=== PATIENT | female | born 1950 | race Caucasian/White ===

== ENCOUNTER 2018-10-31 17:53 | Inpatient (IN) | payer MEDICARE ==
[~2018-10-31] VITALS: Ht 165.1 cm; Wt 98.5 kg
[~2018-10-31 17:53] MED LIST: ASPIR 8181 MG PO; GLIPIZIDE10 MG PO; LISINOPRIL-HCT1 EAC1 PO; METFORMIN HCL1000 MG PO; SYMBICORT 16010.2 GM PO
--- OUTSIDE RECORDS SUMMARY | 2018-10-31 17:55 | XMS REPORT | Summary of Care ---
Author Author [facility] Organization [facility] Address Unknown Phone Unavailable Encounter TIMOTHY Wright(DREW) [id number] Date(s): 01/13/18 - 01/13/18 [facility] [address] [place] [address]- [phone] Discharge Disposition: Home or Self Care Attending Physician: Heladio Palmer MD Referring Physician: Heladio Palmer MD Vital Signs 1 2 3 Most recent to oldest [Reference Range]: 165.1 cm (01/12/18 2:13 PM) Height 153/73 mmHg *HI* (01/13/18 11:15 AM) 146/70 mmHg *HI* (01/13/18 11:00 AM) 127/73 mmHg (01/13/18 10:45 AM) Blood Pressure [90-140/60-90 mmHg] 18 BRMIN (01/13/18 11:15 AM) 18 BRMIN (01/13/18 11:00 AM) 18 BRMIN (01/13/18 10:45 AM) Respiratory Rate [14-20 BRMIN] 100 kg (01/12/18 2:13 PM) Weight 36.69 m2 (01/12/18 2:13 PM) Body Mass Index Problem List Condition Effective Dates Status Health Status Informant Anxiety(Confirmed) Active CKD (chronic kidney Active disease) stage 3, GFR 30-59 ml/min(Confirmed) COPD (chronic Resolved obstructive pulmonary disease)(Confirmed) IBS (irritable bowel Active syndrome)(Confirmed) DM (diabetes Active mellitus)(Confirmed) HTN Active (hypertension)(Confi rmed) Cervical Resolved cancer(Confirmed) Depression(Confirmed Active ) Ovarian Resolved cyst(Confirmed) Vitamin D Resolved deficiency(Confirmed ) Allergies, Adverse Reactions, Alerts Substance Reaction Severity Status Food Chocolate Active Food Nuts Active NKDA Active Medications Sodium Chloride 0.9% IV 1,000 mL 1,000 mL, Rate: 25 ml/hr, Infuse over: 40 hr, Route: IV, Dosing Weight 100 kg, T otal Volume: 1,000, Start date: 01/13/18 8:37:00 CDT, Duration: 1 day, Stop date : 01/14/18 8:36:00 CDT, 2.17, m2 Start Date: 01/13/18 Stop Date: 01/13/18 Status: Discontinued Results No data available for this section Immunizations Given and Recorded Vaccine Date Status Refusal Reason pneumococcal 23-valent vaccine1 05/06/06 Given 1Result Comment: lot [id number] exp [id number] Procedures Procedure Date Related Diagnosis Body Site Status Cataract surgery Completed Cholecystectomy Completed Hysterectomy Completed Procedure on back Completed Social History Social History Type Response Smoking Status Current every day smoker; Exposure to Tobacco Smoke None; Cigarette Smoking Last 365 Days Yes; Reg Smoking Cessation Counseling Yes entered on: 01/13/18 Assessment and Plan No data available for this section
--- OUTSIDE RECORDS SUMMARY | 2018-10-31 17:55 | XMS REPORT | Summary of Care ---
Author Author [facility] Outpatient Imaging [facility] Outpatient Imaging [facility] Address Unknown Phone Unavailable Encounter TIMOTHY Wright(FIN) [id number] Date(s): 08/03/17 - 08/03/17 [facility] Outpatient Imaging [facility] [address] [facility], [address] [place] [phone] Discharge Disposition: Home or Self Care Attending Physician: Steffen May DO Vital Signs No data available for this section Problem List Condition Effective Dates Status Health [...] Active Food Nuts Active NKDA Active Medications No data available for this section Results No data available for this section Immunizations Given and Recorded Vaccine Date Status Refusal Reason pneumococcal 23-valent vaccine1 05/06/06 Given 1Result Comment: lot [id number] exp [id number] Procedures Procedure Date Related Diagnosis Body Site Cataract surgery Cholecystectomy Hysterectomy Procedure on back Social History Social History Type Response Smoking Status Current every day smoker; Exposure to Tobacco Smoke None; Cigarette Smoking Last 365 Days Yes; Reg Smoking Cessation Counseling Yes Assessment and Plan No data available for this section
--- OUTSIDE RECORDS SUMMARY | 2018-10-31 17:55 | XMS REPORT | Summary of Care ---
Author Author [facility] [place] Organization [facility] [place] Address Unknown Phone Unavailable Encounter TIMOTHY Wright(FIN) [id number] Date(s): 12/21/17 - 12/21/17 [facility] - [place] [address] [place] [address] [phone] Discharge Disposition: Home or Self Care Attending Physician: Heladio Palmer MD Vital Signs No data available for this [...] 05/06/06 Given 1Result Comment: lot [id number] exp [id number] Procedures Procedure Date Related Diagnosis Body Site Status Cataract surgery Completed Cholecystectomy Completed Hysterectomy Completed Procedure on back Completed Social History Social History Type Response Smoking Status Current every day smoker; Exposure to Tobacco Smoke None; Cigarette Smoking Last 365 Days Yes; Reg Smoking Cessation Counseling Yes entered on: 12/06/16 Assessment and Plan No data available for this section
--- OUTSIDE RECORDS SUMMARY | 2018-10-31 17:55 | XMS REPORT | Continuity of Care Document ---
Author Author [facility] Address Unknown Phone Unavailable Problems Problem Status Onset Date Classification Date Reported Comments Source EGD / COLON Active 12/21/2017 [facility] UNK Active 11/19/2016 [facility] Z12.11 Active 11/19/2016 [facility] R05 - COUGH Active 09/01/2016 [facility] I65.23 - OCCLUSION AND STENOSIS OF BILA Active 04/13/2016 [facility] 787.20/787.91/787.04 Active 08/22/2011 [facility] Anxiety Active Problem [facility] stage 3, GFR 30-59 ml/min(<span ID="[id number]">Confirmed</span>) Active Problem [facility]/16/2018 [facility] COPD (<span ID="[id number]">Confirmed</span>) Resolved Problem [facility]/16/2018 [facility] IBS (<span ID="[id number]">Confirmed</span>) Active Problem [facility]/16/2018 [facility] DM (<span ID="[id number]">Confirmed</span>) Active Problem 01/16/2018 [facility] HTN (<span ID="[id number]">Confirmed</span>) Active Problem [facility]/16/2018 [facility] Cervical cancer Res[facility] Problem 01/16/2018 [facility] Depression Active Problem [facility]/16/2018 [facility] Ovarian cyst Resolved Problem 01/16/2018 [facility] Vitamin D deficiency Resolved Problem 01/16/2018 [facility] Dysphagia, unspecified 12/30/2017 [facility] Medications Medication Details Route Status Patient Instructions Ordering Provider Order Date Source Sodium Chloride 0.9% IV 1,000 mL 1,000 mL, Rate: 25 ml/hr, Infuse over: 40 hr, Route: IV, Dosing Weight 100 kg, Total Volume: 1,000, Start date: 01/13/18 8:37:00 CDT, Duration: 1 day, Stop date: 01/14/18 8:36:00 CDT, 2.17, m2 Inactive 01/13/2018 [facility] Nexium 40 mg oral delayed release capsule 40 mg, 1 cap, PO, Daily, 30 cap, Substitution Allowed PO Active 12/14/2011 [facility] Ventolin HFA 90 mcg/inh inhalation aerosol with adapter 2 puff, INHALATION, PRN, 17 gm, Substitution Allowed, Maintenance, AERO INHALATION Active 12/14/2011 [facility] Saphris 5 mg sublingual tablet 5 mg, 1 tab, SL, Daily, 60 tab, Substitution Allowed, TAB SL Active 12/14/2011 [facility] Micardis 40 mg oral tablet 40 mg, 1 tab, PO, Daily, 30 tab, Substitution Allowed, TAB PO Active 12/14/2011 [facility] Spiriva Daily, Substitution Allowed Active 12/13/2011 [facility] Advair Diskus 250 mcg-50 mcg inhalation powder 1 puff, INHALATION, BID, 28 ea, Substitution Allowed, Maintenance, PWDR INHALATION Active 12/13/2011 [facility] citalopram 20 mg oral tablet 20 mg, 1 tab, PO, Daily, 30 tab, Substitution Allowed, TAB PO Active 12/13/2011 [facility] glyBURIDE-metformin 1.25 mg-250 mg oral tablet 1 tab, PO, BID, Substitution Allowed, Maintenance, TAB PO Active 12/13/2011 [facility] aspirin 81 mg tablet, chewable 81 mg, 1 tab, PO, Daily, tab, Substitution Allowed, CHEWTAB PO Active 12/07/2011 [facility] pneumococcal 23-valent vaccine 0.5 ml, Drug Form: INJ, Route: IM, Start date: 05/06/06 9:00:00, Stop date: 05/06/06 9:00:00 IM No Longer Active [place] 05/06/2006 [facility] Allergies, Adverse Reactions, Alerts Substance Category Reaction Severity Reaction type Status Date Reported Comments Source Food Chocolate Assertion Propensity to adverse reactions to substance Active [facility] Food Nuts Assertion Propensity to adverse reactions to substance Active [facility] Immunizations Immunization Date Given Site Status Last Updated Comments Source pneumococcal 23-valent vaccine<sup>1</sup> 05/06/2006 Right deltoid completed Chance Result Comment: lot [id number] exp [id number] [facility] pneumococcal 23-valent vaccine<sup>1</sup> 05/06/2006 completed Chance 1Result Comment: lot [id number] [facility] Results Order Name Results Value Reference Range Date Interpretation Comments Source Barium swallow DX Barium swallow DX Exam: Barium swallow esophagram Reason for Exam: - R13.10 Dysphagia, unspecified Comparison Exam: CT scan of the chest 09/17/2016 Discussion: On fur farmer view of the cervical spine, the prevertebral soft tissues are unremarkable. Patient is status post anterior cervical fusion within the lower cervical spine. Patient ingested air crystals and barium without incident. Upon deglutition, there was no evidence seen for aspiration or penetration. The valleculae and piriform sinuses are unremarkable. The esophagus is unremarkable in appearance, without evidence for mucosal abnormalities, abnormal filling defects, or external mass effect. No evidence seen for tertiary contraction waves or hiatal hernia. During the examination, there was no evidence seen for gastroesophageal reflux. The visualized portions of the stomach are unremarkable. Fluoro time 1 minute, 40 seconds. Total exam TFP=5039 mGy-cm. Impression: 1. Unremarkable barium swallow esophagram 12/21/2017 - - Read by: Sandro Clark MD Dictated Date/time: 12/21/17 11:08 Electronically Signed by: Sandro Clark MD 12/21/17 11:12 FINAL REPORT [facility] Spine Lumbar Comp w Bend views DX Spine Lumbar Comp w Bend views DX EXAM: XR LUMBAR SPINE 5 VIEWS DATE: 08/03/2017 10:31 AM DIRECTOR OF REHABILITATION INDICATION: - M54.30 Sciatica, unspecified side COMPARISON: None TECHNIQUE: AP, lateral, coned lateral, lesion extension, LPO and RPO radiographs of the lumbar spine DISCUSSION: 5 nonrib bearing, lumbar-type vertebral bodies are present. Mild dextrocurvature of the thoracic lumbar spine. Moderate disc height loss seen at L4-5. Small multilevel osteophytes are present. Vertebral body heights and remaining disk heights are preserved. There is no spondylolysis or spondylolisthesis. No significant motion seen on flexion or extension. Moderate bilateral facet hypertrophy at L4-5 and L5-S1. Mild bilateral SI joint degenerative changes. Extensive atherosclerotic aortoiliac calcifications are noted. A right lower quadrant calcification measuring approximately 9 x 5 mm may represent a calcified lymph node. IMPRESSION: 1. Multilevel degenerative changes with moderate disc height loss at L4-5. Moderate facet arthropathy in the lower lumbar spine. 2. No spondylolysis or spondylolisthesis. No abnormal motion in flexion or extension. 08/03/2017 - - Read by: Justin Gómez MD Dictated Date/time: 08/03/17 15:05 Electronically Signed by: Justin Gómez MD 08/03/17 15:09 FINAL REPORT [facility] Shoulder series DX Shoulder series DX Exam: Right shoulder x-ray, 3 views Reason for Exam: S46.001A Unspecified injury of muscle(s) and tendon(s) of the rotator cuff of right shoulder, initial encounter Comparison Exam: None Discussion: No acute bony abnormality seen of the right shoulder. Mild osteoarthritis seen within the AC joint and glenohumeral joint. No suspicious osteoblastic or osteolytic lesions seen to suggest pathologic involvement. The visualized portions of the right rib cage and right lung are unremarkable. Impression: 1. Mild osteoarthritis seen within the AC joint and glenohumeral joint. 11/12/2016 - - Read by: Sandro Clark MD Dictated Date/time: 11/12/16 14:25 Electronically Signed by: Sandro Clark MD 11/12/16 14:26 FINAL REPORT [facility] Chest wo contrast CT Chest wo contrast CT EXAM: CT CHEST WITHOUT CONTRAST DATE: 09/17/2016 12:57 PM DIRECTOR OF REHABILITATION INDICATION: fatigue, cough TECHNIQUE: Volumetric CT acquisition of the chest without contrast. Axial, sagittal and coronal reconstructions. Axial MIP reconstructions are created at the acquisition workstation. IV contrast: None. DLP: 595 mGy-cm COMPARISON: No available prior chest CTs for comparison. FINDINGS: Lines and Tubes: None. Lower Neck: The visible portions or the lower neck and thyroid are unremarkable. Heart and Great Vessels: The heart is normal in size. Marked annular calcification of the mitral valve and mild calcification aortic valve. There is calcified atherosclerosis of the coronary arteries and aorta. The left atrium is mildly dilated at 4.5 cm. Lymph Nodes: No hilar, mediastinal, axillary or internal mammary lymphadenopathy. Lungs: Exam is limited due to expiration. 0.9 cm soft tissue density nodule in the superior left lower lobe (image 62). 0.5 cm subcentimeter nodule in the right lower lobe (image 114). Numerous additional 2 to 4 mm nodules are seen throughout all lobes. Additional 1.2 cm pleural-based nodule in the right lower lobe (image 133). Pleura: No evidence of pleural effusion or pneumothorax. Upper abdomen: Unremarkable. Bones and Soft Tissues: Cervical spinal fusion hardware seen. Nlpt-ho-pahelyll changes of the spine are noted. IMPRESSION: 1. Innumerable centrilobular nodules in all lobes of the lung, some of them show tree-in-bud distribution, the largest measures 0.9 cm in the superior left lower lobe. These findings are most compatible with infection, however if there is a history of malignancy cannot exclude metastasis. Recommend follow-up in 3 months after adequate treatment per Fleischner criteria. 2. Mitral annular calcifications and mild left atrial dilation. 09/17/2016 - - This report was dictated by a Scientific Process Operator/Fellow. I have personally reviewed the images as well as the Resident's interpretation and agree with the findings. Read by: Ad Lopez MD Resident: Ad Lopez MD Dictated Date/time: 09/17/16 13:42 Electronically Signed by: Chucky Bhardwaj MD 09/17/16 16:57 FINAL REPORT [facility] Chest 2 views DX Chest 2 views DX EXAM: XR CHEST 2 VIEW DATE: 09/01/2016 3:28 PM DIRECTOR OF REHABILITATION INDICATION: R05 Cough COMPARISON: 11/13/2009 TECHNIQUE: PA lateral chest FINDINGS: Lung le are clear. Heart and mediastinal structures are unremarkable. Orthopedic hardware in the upper thoracic spine is noted. IMPRESSION: No acute disease. 09/01/2016 - - Read by: Guera Winn MD Dictated Date/time: 09/02/16 09:27 Electronically Signed by: Guera Winn 09/02/16 09:30 FINAL REPORT [facility] Neck CTA Neck CTA EXAM: CTA NECK WITH CONTRAST DATE: 04/20/2016 8:58 AM CDT INDICATION: Carotid atherosclerosis seen bilaterally via ultrasound TECHNIQUE Rapid acquisition spiral images were obtained following the intravenous administration of 75 mL Visipaque. 3D MIP reconstructions were performed. DLP: 246 mGy-cm COMPARISON: unavailable DISCUSSION: Aortic arch: Standard anatomy. Calcified atherosclerosis. There is approximately 30-40 % stenosis at the origin of the right subclavian artery related to calcified disease. Left carotid system: Tortuous, but otherwise unremarkable common carotid artery. Disc ossify disease at the bulb and bifurcation with estimated stenosis of less than 20%. The distal cervical internal carotid arteries unremarkable. The ECA origin is patent. Right carotid system: Scattered intimal thickening, soft plaque and calcified disease in the common carotid artery without substantial luminal narrowing. There is mixed calcified disease and soft plaque at the carotid bifurcation asymmetric to the ECA origin. There is a less than 5 mm and narrowing of the internal carotid artery origin, but approximately 80% short segment focal narrowing of the ECA origin. Vertebral arteries: Slightly left dominant system. Normal course, caliber, and contour without atherosclerosis or stenosis Soft tissues: No mucosal contour abnormality, abnormal enhancement, or asymmetry. Normal salivary and thyroid glands. No lymphadenopathy. There are cervical spine postoperative changes without hardware failure. There is bilateral temporomandibular joint arthrosis. IMPRESSION: 1. Bilateral carotid bifurcation atherosclerosis without evidence of hemodynamically significant common carotid or internal carotid artery stenosis 2. There is approximately 80% short segment stenosis of the origin of the right external carotid artery 3. There is approximately 30-40% stenosis of the origin of the right subclavian artery All quantitative and qualitative assessments of carotid bifurcation and proximal internal carotid artery stenosis are made at referencing the distal internal carotid artery. 04/20/2016 - - Read by: Reid Herrera MD Dictated Date/time: 04/20/16 13:47 Electronically Signed by: Reid Herrera MD 04/20/16 14:54 FINAL [facility]PORT [facility] Vital Signs Vital Sign Value Date Comments Source Systolic (mm Hg) 153 01/13/2018 [facility] Diastolic (mm Hg) 73 01/13/2018 [facility] Respitory Rate 18 01/13/2018 [facility] Respitory Rate 18 01/13/2018 [facility] Systolic (mm Hg) 146 01/13/2018 [facility] Diastolic (mm Hg) 70 01/13/2018 [facility] Respitory Rate 18 01/13/2018 [facility] Systolic (mm Hg) 127 01/13/2018 [facility] Diastolic (mm Hg) 73 01/13/2018 [facility] Height 165.1 cm 01/12/2018 [facility] Weight 100 01/12/2018 [facility] BMI Calculated 36.69 01/12/2018 [facility] Diastolic (mm Hg) 74 12/14/2011 [facility] Respitory Rate 18 12/14/2011 [facility] Systolic (mm Hg) 141 12/14/2011 [facility] Height 165.10 cm 12/14/2011 [facility] Weight 88.636 12/14/2011 [facility] Encounters Location Location Details Encounter Type Encounter Number Reason For Visit Attending Provider ADM Date DC Date Status Source [facility] [id number] MARY COLUNGAJACQUIE 12/14/2011 12/14/2011 [facility] [place] [facility] [id number] Emre Jane 04/20/2016 04/21/2016 [facility] [place] [facility] [id number] [facility] 09/01/2016 09/02/2016 [facility] [place] [facility] [id number] [facility] 09/17/2016 09/18/2016 [facility] [place] [facility] [id number] [facility] 11/12/2016 11/13/2016 [facility] [place] [facility] [id number] [facility] 08/03/2017 08/04/2017 [facility] [place] [facility] [place] [facility] [id number] Heladio Palmer 12/21/2017 12/22/2017 [facility] [id number] Heladio Palmer 01/13/2018 01/13/2018 [facility] Procedure Code Date Perfomer Comments Source Cataract surgery [id number] [facility] Cholecystectomy [id number] [facility] Hysterectomy [id number] [facility] Procedure on back [id number] [facility] Cataract surgery [id number] [facility] Cholecystectomy [id number] [facility] Hysterectomy [id number] [facility] Procedure on back [id number] [facility] Cataract surgery [id number] [facility] Cholecystectomy [id number] [facility] Hysterectomy [id number] [facility] Procedure on back [id number] NEGR[facility] Contrersa
--- OUTSIDE RECORDS SUMMARY | 2018-10-31 17:56 | XMS REPORT | Summary of Care ---
Author Author [facility] Outpatient Imaging [facility] Outpatient Imaging [facility] Address Unknown Phone Unavailable Encounter [facility] Savita_rogelio(FIN) [id number] Date(s): 09/01/16 - 09/01/16 [facility] Outpatient Imaging [facility] [address] [facility], [address] [place] [phone] Discharge Disposition: Home or Self Care Attending Physician: Steffen May DO Vital Signs No data available for this section Problem List No data available for this section Allergies, Adverse Reactions, Alerts Substance Reaction Severity Status Food Chocolate Active Food Nuts Active NKDA Active Medications No data available for this section Results No data available for this section Immunizations Given and Recorded Vaccine Date Status Refusal Reason pneumococcal 23-valent vaccine1 05/06/06 Given 1Result Comment: lot [id number] exp [id number] Procedures No data available for this section Social History No data available for this section Assessment and Plan No data available for this section
--- OUTSIDE RECORDS SUMMARY | 2018-10-31 17:56 | XMS REPORT | Summary of Care ---
Author Author [facility] [place] Organization [facility] [place] Address Unknown Phone Unavailable Encounter [facility] Encntr_alias(FIN) [id number] Date(s): 11/12/16 - 11/12/16 [facility] [place] [address] [place] [address] [phone] Discharge Disposition: Home or Self Care Attending [...] 05/06/06 Given 1Result Comment: lot [id number] exp [id number] Procedures No data available for this section Social History No data available for this section Assessment and Plan No data available for this section
--- OUTSIDE RECORDS SUMMARY | 2018-10-31 17:56 | XMS REPORT | Summary of Care ---
Author Author [facility] [place] Organization [facility] [place] Address Unknown Phone Unavailable Encounter [facility] Ana Luisar_rogelio(FIN) [id number] Date(s): 04/20/16 - 04/20/16 [facility] [place] [address] [place] [address] [phone] Discharge Disposition: Home or Self Care Attending Physician: Emre Jane MD Vital Signs No data available for [...] 05/06/06 Given 1Result Comment: lot [id number] exp [id number] Procedures No data available for this section Social History No data available for this section Assessment and Plan No data available for this section
--- OUTSIDE RECORDS SUMMARY | 2018-10-31 17:56 | XMS REPORT | Summary of Care ---
Author Author ROLANDO Arias, JERRY Organization Unknown Address [facility] Phone Unavailable Care Team Providers Care Finisher Fine Diamond Dies Name Role Phone ROLANDO Arias, JERRY Unavailable Unavailable CAROL Arias, HELADIO Unavailable Unavailable CHET Stoll, FRANCES Unavailable Unavailable YEYO SINGH HI, PRECIOUS Booker Unavailable Unavailable YEYO Arias, PRECIOUS Unavailable Unavailable Rolando SINGH, Jerry Unavailable Unavailable Carol SINGH, Heladio Unavailable Unavailable Unavailable Unavailable Functional Status Name Dates Details Functional status health issues are not documented Status: Name Dates Details Cognitive status health issues are not documented Status: Problems Name Dates Details Diabetic neuropathy (250.60, E11.40) Status: Active Lesion of skin of foot (709.9, L98.9) Status: Active Angina pectoris (413.9, I20.9) Status: Active Carotid atherosclerosis, bilateral (433.10, I65.23) Status: Active Vitamin D deficiency disease (268.9, E55.9) Status: Active Flu vaccine need (V04.81, Z23) Status: Active Need for vaccination with 13-polyvalent pneumococcal conjugate vaccine (V03.82, Z23) Status: Active Jaw pain (784.92, R68.84) Status: Active Encounter for screening for lung cancer (V76.0, Z12.2) Status: Active Cough, persistent (786.2, R05) Status: Active Dyspnea on exertion (786.09, R06.09) Status: Active Abnormal chest CT (793.2, R93.89) Status: Active Injury of right rotator cuff (959.2, S46.001A) Status: Active Screening for osteoporosis (V82.81, Z13.820) Status: Active Screening for breast cancer (V76.10, Z12.31) Status: Active Piriformis syndrome of right side (355.0, G57.01) Status: Active 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, 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) Status: Active Irritable bowel syndrome with both constipation and diarrhea (564.1, K58.2) Status: Active Vitamin D insufficiency (268.9, E55.9) Status: Active Fatigue (780.79, R53.83) Status: Active Abnormal urine (791.9, R82.90) Status: Active Dizziness (780.4, R42) Status: Active Obstructive sleep apnea on CPAP (327.23, G47.33) Status: Active Flu vaccine need (V04.81, Z23) Status: Active Black tarry stools (578.1, K92.1) Status: Active Hypoactive thyroid (244.9, E03.9) Status: Active Acute sciatica (724.3, M54.30) Status: Active Diabetes mellitus (250.00, E11.9) Status: Active Urinary frequency (788.41, R35.0) Status: Active Choking sensation (784.99, R09.89) Status: Active Frontal headache (784.0, R51) Status: Active Blurred vision (368.8, H53.8) Status: Active Skin lesion of face (709.9, L98.9) Status: Active Screening mammogram, encounter for (V76.12, Z12.31) Status: Active Dysphagia (787.20, R13.10) Status: Active Encounter for screening colonoscopy (V76.51, Z12.11) Status: Active Acid reflux (530.81, K21.9) Status: Active Dysphagia (787.20, R13.10) Status: Active Colon polyp (211.3, K63.5) Status: Active GERD without esophagitis (530.81, K21.9) Status: Active Seasonal allergic rhinitis (477.9, J30.2) Status: Active Insomnia (780.52, G47.00) Status: Active Nausea (787.02, R11.0) Status: Active Tobacco dependence (305.1, F17.200) Status: Active Cervicalgia (723.1, M54.2) Status: Active Cervico-occipital neuralgia of right side (723.8, M54.81) Status: Active Hypertension (401.9, I10) Status: Active Depression with anxiety (300.4, F41.8) Status: Active Posterior auricular lymphadenopathy (785.6, R59.0) Status: Active Tinea cruris (110.3, B35.6) Status: Active Acute sinusitis (461.9, J01.90) Status: Active Chronic kidney disease, stage 3 (585.3, N18.3) Status: Active Yeast infection of the vagina (112.1, B37.3) Status: Active Uncontrolled type 2 diabetes mellitus with stage 3 chronic kidney disease, with long-term current use of insulin (250.52, E11.22) Status: Active Mixed hyperlipidemia (272.2, E78.2) Status: Active Controlled type 2 diabetes mellitus with chronic kidney disease, with long-term current use of insulin, unspecified CKD stage (250.40, E11.22) Status: Active Medications Name Dates Details CPAP Continuous Positive Airway Pressure Active Super B Complex TABS TAKE 1 TABLET DAILY DIRECTED. * Refills: 0 Active Aspirin 81 MG Oral Tablet Delayed Release TAKE 1 TABLET DAILY. * Refills: 0 Active Losartan Potassium-HCTZ 100-25 MG Oral Tablet TAKE ONE TABLET BY MOUTH DAILY * Quantity: 90 Refills: 1 YEH D.O.FRANCES * Start : 27-Sep-2017 Active Womens One Daily Oral Tablet TAKE 1 TABLET DAILY. * Refills: 0 Active Acetaminophen 500 MG Oral Tablet TAKE 1 TABLET EVERY 4 TO 6 HOURS NEEDED. * Refills: 0 Active diphenhydrAMINE HCl - 25 MG Oral Capsule TAKE 1 CAPSULE DAILY as needed * Refills: 0 Active Nasal [place] SOLN INSTILL SQUIRT PRN * Refills: 0 Active clonazePAM 0.5 MG Oral Tablet TAKE ONE TABLET BY MOUTH AT BEDTIME NEEDED * Quantity: 30 Refills: 2 YEH D.O.FRANCES * Start : 07-Sep-2016 Active Citalopram Hydrobromide 20 MG Oral Tablet TAKE ONE TABLET BY MOUTH DAILY * Quantity: 90 Refills: 1 YEH D.O.FRACNES * Start : 03-Feb-2016 Active Vitamin D3 2000 UNIT Oral Capsule take 1 cap daily alternating with 2 caps * Quantity: 100 Refills: 6 ROLANDO JERRY Arias Active Fluticasone Propionate 50 MCG/ACT Nasal Suspension USE 2 SPRAYS IN EACH NOSTRIL ONCE DAILY * Quantity: 1 Refills: 5 YEH D.O., FRANCES * Start : 02-Aug-2016 Active 16 GM Bottle NovoTwist 32G X 5 MM USE TO INJECT INSULIN FOUR TIMES A DAY * Quantity: 2 Refills: 2 ROLANDO Arias, JERRY * Start : 24-Sep-2016 Active 100 Unit Box Fiber CHEW TAKE 2 TABLET DAILY * Refills: 0 Active Diclofenac Sodium 1 % Transdermal Gel APPLY 2 GRAMS TO UPPER EXTREMITITES FOUR TIMES A DAY. DO NOT APPLY MORE THAN 8 G EDILIA DAILY. * Quantity: 1 Refills: 1 YEH D.O., FRANCES * Start : 10-Nov-2016 Active 100 GM Tube NovoLOG FlexPen 100 UNIT/ML Subcutaneous Solution Pen-injector inject 15 U SC qAC plus CF 1:50>150 mg/dL MDD:60 U * Quantity: 2 Refills: 2 ROLANDO Arias, JERRY * Start : 12-Jul-2017 Active 5 x 3 ML Pen Tresiba FlexTouch 100 UNIT/ML Subcutaneous Solution Pen-injector inject 45 U SC daily MDD:60 U * Quantity: 2 Refills: 2 ROLANDO Arias, JERRY * Start : 10-Aug-2017 Active 5 x 3 ML Pen OneTouch Delica Lancets 33G check BG 4xs daily * Quantity: 2 Refills: 2 JERRY MARSHALL M.D. * Start : 23-Aug-2017 Active 100 Unit Box OneTouch Verio In Vitro Strip CHECK BLOOD SUGAR FOUR TIMES DAILY. * Quantity: 2 Refills: 2 JERRY MARSHALL M.D. * Start : 10-Aug-2017 Active 100 Strip Box Oxybutynin Chloride ER 5 MG Oral Tablet Extended Release 24 Hour Take one tablet by mouth daily for overactive bladder * Quantity: 90 Refills: 1 YEH D.O., FRANCES * Start : 13-Dec-2017 Active OsmoPrep 1.102-0.398 GM Oral Tablet TAKE DIRECTED. * Quantity: 40 Refills: 0 HELADIO MEDINA M.D. * Start : 20-Dec-2017 Active Benadryl CAPS TAKE 2 CAPSULE BEDTIME * Refills: 0 Active Trulicity 0.75 MG/0.5ML Subcutaneous Solution Pen-injector inject 0.75 mg SC once weekly * Quantity: 1 Refills: 2 ROLANDO M.D., JERRY * Start : 20-Apr-2018 Active 4 x 0.5 ML Pen Azelastine HCl - 0.1 % Nasal Solution USE 1 TO 2 SPRAYS IN EACH NOSTRIL TWICE DAILY NEEDED. * Quantity: 1 Refills: 5 YEH D.O., FRANCES * Start : 15-May-2018 Active 30 ML Bottle Chantix Starting Month Eliot 0.5 MG X 11 & 1 MG X 42 Oral Tablet TAKE DIRECTED PER PACKAGE INSTRUCTIONS. * Quantity: 53 Refills: 0 YEH D.O., ESTEFANI-DANIEL * Start : 15-May-2018 Active Ondansetron HCl - 4 MG Oral Tablet TAKE 1 TABLET EVERY 6 HOURS PRN nausea * Quantity: 60 Refills: 1 YEH D.O., FRANCES * Start : 15-May-2018 Active Atorvastatin Calcium 40 MG Oral Tablet TAKE 1 TABLET DAILY. * Quantity: 1 Refills: 1 YEH D.O., FRANCES * Start : 23-May-2018 Active 90 Tablet Bottle Ventolin HFA 108 (90 Base) MCG/ACT Inhalation Aerosol Solution INHALE 1 TO 2 PUFFS BY MOUTH EVERY 4 TO 6 HOURS NEEDED * Quantity: 1 Refills: 5 YEH D.O., FRANCES * Start : 26-Jul-2018 Active 8 GM Inhaler Allergies and Adverse Reactions Name Dates Details No Known Drug Allergies (Allergy) Status: Active Past Medical History Name Dates Details History of Anxiety (300.00, F41.9) Status: Resolved History of chronic obstructive lung disease (V12.69, Z87.09) Status: Resolved History of malignant neoplasm of cervix (V10.41, Z85.41) Status: Resolved History of ovarian cyst (V13.29, Z87.42) Status: Resolved History of Vitamin D deficiency (268.9, E55.9) Status: Resolved Procedures Procedure Dates Details [[facility]] HEMOGLOBIN A1c Date: 26-Oct-2018 History of Hysterectomy Completed History of Upper Back Surgery Completed History of Cataract Surgery Completed History of Cholecystectomy Completed Immunization Name Dates Details Pneumococcal polysaccharide vaccine, 23 valent on: Aug-2012 Influenza on: 22-May-2014 Fluzone Quadrivalent 0.5 ML Intramuscular Suspension Prefilled Syringe Lot #: [id number] on: 02-Aug-2016 Prevnar 13 Intramuscular Suspension Lot #: [id number] on: 02-Aug-2016 Fluzone Quadrivalent 0.5 ML Intramuscular Suspension Lot #: [id number] on: 25-May-2017 Fluzone Quadrivalent 0.5 ML Intramuscular Suspension Prefilled Syringe Lot #: [id number] on: 15-May-2018 Family History Name Dates Details Family history of diabetes mellitus (V18.0, Z83.3) Status: Active Family history of ESRD (end stage renal disease) (585.6, N18.6) Status: Active Name Dates Details Family history of cardiac disorder (V17.49, Z82.49) Status: Active Name Dates Details Family history of leukemia (V16.6, Z80.6) Status: Active Name Dates Details Family history of cardiac disorder (V17.49, Z82.49) Status: Active Family history of myocardial infarction (V17.3, Z82.49) Status: Active FH: CABG (coronary artery bypass surgery) (V17.3, Z82.49) Status: Active Family history of hypertension (V17.49, Z82.49) Status: Active Name Dates Details Family history of hypertension (V17.49, Z82.49) Status: Active Family history of cerebrovascular accident (CVA) (V17.1, Z82.3) Status: Active Family history of Presence of stent in artery (V49.89, Z95.828) Status: Active Family history of hyperlipidemia (V18.19, Z83.438) Status: Active Family history of diabetes mellitus (V18.0, Z83.3) Status: Active Social History Name Dates Details - Status: Name Dates Details Current every day smoker Vital Signs Date Test Result Details [id number] BP Systolic 125 mm[Hg] Status: Comments: Location: LUE; Position: Sitting BP Diastolic 72 mm[Hg] Status: Comments: Location: E; Position: Sitting Height 65 in Status: Weight 210.25 lb Status: Body Mass Index Calculated 34.99 kg/m2 Status: Body Surface Area Calculated 2.02 m2 Status: Heart Rate 71 /min Status: Results Date Description Value Details :39 [[facility]] HEMOGLOBIN A1c Comments: REPORT COMMENT:FASTING:YES HEMOGLOBIN A1c 6.3 {%_of_total} (Above high threshold) Range: <5.7 Comments: For someone without known diabetes, a hemoglobin A1c value between 5.7% and 6.4% is consistent withprediabetes and should be confirmed with a follow-up test. For someone with known diabetes, a value <7%indicates that their diabetes is well controlled. [id number] should be individualized based on duration ofdiabetes, age, comorbid conditions, and otherconsiderations. This assay result is consistent with an increased riskof diabetes. Currently, no consensus exists regarding use ofhemoglobin A1c for diagnosis of diabetes for children. [id number] Glucose (Point of Care In Office) Glucose POC [facility] Plan of Care Name Dates Details Planned Observations [[facility]] HEMOGLOBIN A1c On: 08-Jan-2019 Intent Planned Goals not documented Planned Encounters Appointment; JERRY MARSHALL M.D. On: 31-Jan-2019 9:30 Interventions Provided Medication Changes* NovoLOG FlexPen 100 UNIT/ML Subcutaneous Solution Pen- injector - Renew * NovoTwist 32G X 5 MM - Renew * Tresiba FlexTouch 100 UNIT/ML Subcutaneous Solution Pen-injector - Renew * Trulicity 0.75 MG/0.5ML Subcutaneous Solution Pen-injector - Renew Labs/Procedures/Imaging* Glucose (Point of Care In Office); Done: 26 Oct 2018 Instructions* Patient Specific Education Given; Done: 26 Oct 2018 Discussion/Summary* 68 yo F with DM2 here for f/u. * A1c is 6.3%, at goal. Continue SMBG 3-4xs daily. Discussed keeping a food log and write what she eats and when she takes novolog. Currently not consistent with when she takes for snacks or remembers when she snacks so unable to adjust at this time. Continue Novolog 15 U SC qAC plus CF 50. Advised her if starts drinking protein shakes as meal replacement then do not take Novolog with them, for ensure max or premier protein. She reported she understood. Recommend reducing Tresiba to 45 U SC daily to start tomorrow morning and continue Trulicity 0.75 mg SC once weekly. Stressed MNT, exercise and weight loss. BP is good. F/U in 3 mos w/pre-clinic A1c. Instructions Name Dates Details Instructions not documented Encounters Appointment; FRANCES ROSENBERG D.O. Encounter Diagnosis: Problem not documented On: 10-Nov-2016 9:15 Appointment; HELADIO MEDINA M.D. Encounter Diagnosis: Problem not documented On: 18-Nov-2016 13:00 Appointment; JERRY MARSHALL M.D. Encounter Diagnosis: Problem not documented On: 04-Jan-2017 10:00 Appointment; FRANCES ROSENBERG D.O. Encounter Diagnosis: Problem not documented On: 01-Feb-2017 10:45 Appointment; FRANCES ROSENBERG D.O. Encounter Diagnosis: Problem not documented On: 25-May-2017 10:00 Appointment; FRANCES ROSENBERG D.O. Encounter Diagnosis: Problem not documented On: 16-Jun-2017 9:00 Appointment; FRANCES ROSENBERG D.O. Encounter Diagnosis: Problem not documented On: 02-Aug-2017 10:45 Appointment; JERRY MARSHALL M.D. Encounter Diagnosis: Problem not documented On: 10-Aug-2017 10:00 Appointment; FRANCES ROSENBERG D.O. Encounter Diagnosis: Problem not documented On: 26-Sep-2017 11:00 Appointment; JERRY MARSHALL M.D. Encounter Diagnosis: Problem not documented On: 24-Nov-2017 10:00 Appointment; FRANCES ROSENBERG D.O. Encounter Diagnosis: Problem not documented On: 13-Dec-2017 10:15 Appointment; HELADIO MEDINA M.D. Encounter Diagnosis: Problem not documented On: 20-Dec-2017 15:30 Appointment; HELADIO MEDINA M.D. Encounter Diagnosis: Problem not documented On: 16-Feb-2018 10:00 Appointment; JERRY MARSHALL M.D. Encounter Diagnosis: Problem not documented On: 20-Apr-2018 13:30 Appointment; FRANCES ROSENBERG D.O. Encounter Diagnosis: Problem not documented On: 15-May-2018 10:30 Appointment; FRANCES ROSENBERG D.O. Encounter Diagnosis: Problem not documented On: 30-May-2018 10:45 Appointment; JERRY MARSHALL M.D. Encounter Diagnosis: Problem not documented On: 24-Jul-2018 11:30 Appointment; FRANCES ROSENBERG D.O. Encounter Diagnosis: Problem not documented On: 26-Jul-2018 13:00 Appointment; JERRY MARSHALL M.D. Encounter Diagnosis: Problem not documented On: 28-Jul-2018 14:00 Appointment; JERRY MARSHALL M.D. Encounter Diagnosis: Problem not documented On: 26-Oct-2018 15:30
--- OUTSIDE RECORDS SUMMARY | 2018-10-31 17:56 | XMS REPORT | Summary of Care ---
Author Author [facility] Outpatient Imaging [facility] Outpatient Imaging [facility] Address Unknown Phone Unavailable Encounter HQ Taintr_rogelio(FIN) [id number] Date(s): 09/17/16 - 09/17/16 [facility] Outpatient Imaging [facility] [address] [facility], [address] [place] [phone] Discharge Disposition: Home or Self Care Attending [...] 05/06/06 Given 1Result Comment: lot [id number] Procedures No data available for this section Social History No data available for this section Assessment and Plan No data available for this section
--- OUTSIDE RECORDS SUMMARY | 2018-10-31 17:56 | XMS REPORT | Summary of Care ---
Author Author [facility] [place] Organization [facility] [place] Address Unknown Phone Unavailable Encounter HQ Kyle(FIN) [phone] Date(s): 12/21/17 - 12/21/17 [facility] Outpatient [facility] [place] [address] [place] [phone] Encounter Diagnosis Dysphagia, unspecified (Final) - Discharge Disposition: Home or Self Care Attending [...] 05/06/06 Given 1Result Comment: lot [id number] Procedures Procedure Date Related Diagnosis Body Site [...]
--- OUTSIDE RECORDS SUMMARY | 2018-10-31 17:56 | XMS REPORT | CCD ---
Author Author Auto Generated Organization [facility] Address Unknown Phone Unavailable Care Team Providers Care Unix Systems Administrator Name Role Phone Demetri Dc I RP Allergies, Adverse Reactions, Alerts Substance Reaction Status Food Chocolate Active Food Nuts Active NKDA Active Medications Medication Instructions Start Date End Date Status aspirin 81 mg 81 mg, 1 tab, PO, Daily, tab, 12/07/2011 Ordered tablet, chewable Substitution Allowed, CHEWTAB Saphris 5 mg 5 mg, 1 tab, SL, Daily, 60 tab, 12/14/2011 Ordered sublingual tablet Substitution Allowed, TAB Nexium 40 mg oral 40 mg, 1 cap, PO, Daily, 30 cap, 12/14/2011 Ordered delayed release Substitution Allowed capsule citalopram 20 mg 20 mg, 1 tab, PO, Daily, 30 tab, 12/13/2011 Ordered oral tablet Substitution Allowed, TAB Spiriva Daily, Substitution Allowed 12/13/2011 Ordered pneumococcal 0.5 ml, Drug Form: INJ, Route: IM, 05/06/2006 05/06/2006 Completed 23-valent vaccine Start date: 05/06/06 9:00:00, Stop date: 05/06/06 9:00:00 Micardis 40 mg oral 40 mg, 1 tab, PO, Daily, 30 tab, 12/14/2011 Ordered tablet Substitution Allowed, TAB Advair Diskus 250 1 puff, INHALATION, BID, 28 ea, 12/13/2011 Ordered mcg-50 mcg Substitution Allowed, Maintenance, inhalation powder PWDR Ventolin HFA 90 2 puff, INHALATION, PRN, 17 gm, 12/14/2011 Ordered mcg/inh inhalation Substitution Allowed, Maintenance, aerosol with adapter AERO glyBURIDE-metformin 1 tab, PO, BID, Substitution 12/13/2011 Ordered 1.25 mg-250 mg oral Allowed, Maintenance, TAB tablet Immunizations Vaccine Date Status pneumococcal 23-valent vaccine1 05/06/2006 Auth (Verified) 1Result Comment: lot [id number] Vital Signs Most recent to oldest [Reference Range]: 1 Height 165.10 cm (12/14/2011 07:39:00) Systolic Blood Pressure [90-140 mmHg] 141 mmHg *HI* (12/14/2011 07:45:00) Diastolic Blood Pressure [60-90 mmHg] 74 mmHg (12/14/2011 07:45:00) Respiratory Rate [14-20 BRMIN] 18 BRMIN (12/14/2011 07:45:00) Weight 88.636 kg (12/14/2011 07:39:00)
[2018-10-31] MEDS ORDERED: DIATRIZOATE MEGL/DIATRIZOA SOD 30 ML BTL PO ONE (21:09)
[2018-10-31 21:29] LABS: BASOPHILS # (AUTO) 0.1 (0.0-0.1); BASOPHILS % 0.5 % (0.0-1.0); EOSINOPHILS # (AUTO) 0.2 (0.0-0.4); EOSINOPHILS % 1.2 % (0.0-6.0); HEMATOCRIT 43.2 % (34.2-44.1); HEMOGLOBIN 14.1 g/dL (12.0-16.0); LYMPHOCYTES # (AUTO) 4.6 (1.0-3.2); MEAN CORPUSCULAR HEMOGLOBIN 31.2 pg (28-32); MEAN CORPUSCULAR HGB CONC 32.6 g/dL (31-35); MEAN CORPUSCULAR VOLUME 95.6 fL (81-99); MONOCYTES # (AUTO) 0.9 (0.2-0.8); MONOCYTES % 5.7 % (4.4-11.3); NEUTROPHILS # (AUTO) 10.1 (2.1-6.9); NEUTROPHILS % 63.2 % (38.7-80.0); PLATELET COUNT 302 x10e3/uL (140-360); RED BLOOD COUNT 4.52 x10e6/uL (3.6-5.1); RED CELL DISTRIBUTION WIDTH 13.5 % (11.7-14.4)
[2018-10-31 21:46] LABS: ALBUMIN 3.5 g/dL (3.5-5.0); ALBUMIN/GLOBULIN RATIO 0.9 (0.8-2.0); ANION GAP 14.7 mmol/L (8-16); CALCIUM 10.5 mg/dL (8.4-10.2); CREATININE, SERUM 1.47 mg/dL (0.57-1.11); POTASSIUM 3.7 mmol/L (3.5-5.1)
[2018-10-31 21:52] LABS: CREATINE KINASE MB 0.6 ng/mL (0-5.0)
--- NOTE | 2018-10-31 23:18 | Diagnostic Imaging Report ---
EXAM: CT Abdomen and Pelvis WITHOUT contrast INDICATION: Sharp Abdominal pain radiating to back.. COMPARISON: None. TECHNIQUE: Abdomen and pelvis were scanned utilizing a multidetector helical scanner from the lung base to the pubic symphysis without administration of IV contrast. Absence of intravenous contrast decreases sensitivity for detection of focal lesions and vascular pathology. Coronal and sagittal reformations were obtained. Routine protocol was performed. IV CONTRAST: None. ORAL CONTRAST: Water RADIATION DOSE: Total DLP: 751.74 mGy*cm Estimated effective dose: (DLP x 0.015 x size factor) mSv COMPLICATIONS: None FINDINGS: LINES and TUBES: None. LOWER THORAX: Severe calcification of the mitral valve. 2 mm pleural-based nodule in the right middle lobe on image 4 series 2. Posterior right basilar atelectasis versus scarring. HEPATOBILIARY: No focal hepatic lesions. No biliary ductal dilation. GALLBLADDER: No radio-opaque stones or sludge. No wall thickening. SPLEEN: No splenomegaly. PANCREAS: No focal masses or ductal dilatation. ADRENALS: No adrenal nodules KIDNEYS/URETERS: No hydronephrosis. 1.3 cm cyst exophytic of the upper pole of the left kidney. 5 mm nonobstructing calculus in the upper pole of the left kidney. Duplicated right renal collecting system GI TRACT: No abnormal distention, wall thickening, or evidence of bowel obstruction. Moderate volume of stool within the colon. Appendix is nonvisualized. PELVIC ORGANS/BLADDER: Status post hysterectomy. LYMPH NODES: No lymphadenopathy. VESSELS: There is moderate atherosclerotic disease in the aorta and major arterial branches. Mild ectasia of the distal abdominal aorta. PERITONEUM / RETROPERITONEUM: No free air or fluid. BONES: Degenerative disc disease at L4-L5. SOFT TISSUES: Unremarkable. IMPRESSION: 1. No acute abdominopelvic abnormality. 2. 5 mm nonobstructing calculus in the upper pole of the left kidney. Signed by: Dr. Rona Blake M.D. on 10/31/2018 11:15 PM
[2018-11-01] VITALS (9 sets, daily range): BP systolic 100–125; BP diastolic 51–60
[2018-11-01] MEDS ORDERED: DEXTROSE 50% SYRINGE 50 ML IV PRN ×2 (00:30→09:15)
--- OUTSIDE RECORDS SUMMARY | 2018-11-01 00:33 | XMS REPORT ---
Author Author [facility] Address Unknown Phone Unavailable Care Team Providers Care Operational Review Sergeant Name Role Phone Diane FLOYD Unavailable Unavailable Problems This patient has no known problems. Allergies, Adverse Reactions, Alerts This patient has no known allergies or adverse reactions. Medications This patient has no known medications. Results Test Description Test Time Test Comments Text Results Atomic Results Result Comments CT ABDOMEN/PELVIS WO 2018-10-31 22:42:00 [place] [address] Patient Name: GUANAKITO CUADRA MR #: [id number] : 1950 Age/Sex: 68/F Req #: [id number] Adm Physician: Ordered by: ESPERANZA JACINTO MD Report #: [id number] Location: ER Room/Bed: Procedure: [id number] CT/CT ABDOMEN/PELVIS WO Exam Date: 10/31/18 Exam Time: 6 REPORT STATUS: Signed EXAM: CT Abdomen and Pelvis WITHOUT contrast INDICATION: Sharp Abdominal pain radiating to back.. COMPARISON: None. TECHNIQUE: Abdomen and pelvis were scanned utilizing a multidetector helical scanner from the lung base to the pubic symphysis without administration of IV contrast. Absence of intravenous contrast decreases sensitivity for detection of focal lesions and vascular pathology. Coronal and sagittal reformations were obtained. Routine protocol was performed. IV CONTRAST: None. ORAL CONTRAST: Water RADIATION DOSE: Total DLP: 751.74 mGy*cm Estimated effective dose: (DLP x 0.015 x size factor) mSv COMPLICATIONS: None FINDINGS: LINES and TUBES: None. LOWER THORAX: Severe calcification of the mitral valve. 2 mm pleural-based nodule in the right middle lobe on image 4 series 2. Posterior right basilar atelectasis versus scarring. HEPATOBILIARY: No focal hepatic lesions. No biliary ductal dilation. GALLBLADDER: No radio-opaque stones or sludge. No wall thickening. SPLEEN: No splenomegaly. PANCREAS: No focal masses or ductal dilatation. ADRENALS: No adrenal nodules KIDNEYS/URETERS: No hydronephrosis. 1.3 cm cyst exophytic of the upper pole of the left kidney. 5 mm nonobstructing calculus in the upper pole of the left kidney. Duplicated right renal collecting system GI TRACT: No abnormal distention, wall thickening, or evidence of bowel obstruction. Moderate volume of stool within the colon. Appendix is nonvisualized. PELVIC ORGANS/BLADDER: Status post hysterectomy. LYMPH NODES: No lymphadenopathy. VESSELS: There is moderate atherosclerotic disease in the aorta and major arterial branches. Mild ectasia of the distal abdominal aorta. PERITONEUM / RETROPERITONEUM: No free air or fluid. BONES: Degenerative disc disease at L4-L5. SOFT TISSUES: Unremarkable. IMPRESSION: 1. No acute abdominopelvic abnormality. 2. 5 mm nonobstructing calculus in the upper pole of the left kidney. Signed by: Dr. Rona Mack M.D. on 10/31/2018 11:15 PM Dictated By: ASMITA MACK MD, MD [id number] Transcribed By: CARMEN on 10/31/18 2762 COPY TO: ESPERANZA JACINTO MD
[2018-11-01] MEDS: HYDROMORPHONE 2MG/ML 2 MG/ML ML IV PRN ×2 (01:30→14:05)
[2018-11-01] MEDS: ONDANSETRON HCL INJ 2MG/ML 2ML 2 MG/ML VIAL IV PRN ×2 (01:30→14:05)
[2018-11-01] MEDS: SODIUM CHLORIDE 0.9% 1000ML 1,000 ML IV SCH ×3 (01:30→13:47)
[2018-11-01 01:50] LABS: CLARITY,URINE CLEAR (CLEAR); COLOR,URINE YELLOW (YELLOW); LEUKOCYTE ESTERASE ,URINE NEGATIVE (NEGATIVE)
[2018-11-01 01:51] LABS: BILIRUBIN,URINE NEGATIVE (NEGATIVE); KETONES,URINE NEGATIVE (NEGATIVE); NITRITE,URINE NEGATIVE (NEGATIVE); PROTEIN,URINE DIPSTICK NEGATIVE (NEGATIVE); URINE UROBILINOGEN 0.2 mg/dL (0.2 - 1)
[2018-11-01 02:18] LABS: BACTERIA,URINE RARE /HPF; EPITHELIAL CELLS,URINE FEW /LPF; RBC,URINE 0-5 /HPF (0-5); WBC,URINE (MAN) 0-5 /HPF (0-5)
--- NOTE | 2018-11-01 02:45 | NUR ---
Received patient from ER per stretcher, accompanied by ER staff, alert, not in distress. Oriented to room, placed comfortably on bed, advised to call for assistance, patient verbalized understanding, NPO reinstructed and maintained, will continue to monitor.
[2018-11-01] MEDS ORDERED: OXYBUTYNIN CHLOR5 MG PO (04:52)
[2018-11-01] MEDS ORDERED: NOVOLOG100 UNIT/1 SQ (04:52)
[2018-11-01] MEDS ORDERED: ATORVASTATIN CA20 MG PO (04:52)
[2018-11-01] MEDS ORDERED: CITALOPRAM HBR20 MG PO (04:52)
[2018-11-01] MEDS ORDERED: trulicity SQ (06:37)
[2018-11-01] MEDS ORDERED: tresiba SQ (06:38)
[2018-11-01] MEDS ORDERED: ADVAIR 100-501 EACH (06:41)
[2018-11-01] MEDS ORDERED: INSULIN REGULAR, HUMAN 100 UNIT/1 ML 3ML VIAL SQ SCH (07:30)
[2018-11-01] MEDS ORDERED: LOSARTAN-HCTZ1 EAC1 PO (07:57)
[2018-11-01] MEDS ORDERED: SALMETEROL/FLUTICASONE 100/50 INH SCH (10:00)
--- NOTE | 2018-11-01 10:26 | NUR ---
CALL PLACED OUT TO DR. BA REGARDING PATIENT'S NPO STATUS AND PO MEDICATION- AWAITING CALLBACK.
[2018-11-01] MEDS: INSULIN LISPRO 100 UNIT/1 ML 3ML VIAL SQ SCH ×5 (11:30→20:45)
--- NOTE | 2018-11-01 12:50 | NUR ---
CALLED AND SPOKE WITH DR. BA REGARDING PATIENT'S TEMP OF 100.1- RECEIVED NEW ORDERS FOR TYLENOL AND ZOSYN. RECEIVED OKAY FROM DR. BA TO ADMINISTER PO MEDICATIONS.
[2018-11-01] MEDS: SALMETEROL/FLUTICASONE 100/50 INH SCH (12:57)
[2018-11-01] MEDS: ASPIRIN 81 MG CHEW TAB PO SCH (14:05)
[2018-11-01] MEDS: PIPER-TAZ 3.375 GM 50 ML IV SCH ×2 (14:05→22:09)
[2018-11-01] MEDS: ACETAMINOPHEN 325 MG TAB PO PRN (14:05)
--- NOTE | 2018-11-01 19:23 | NUR ---
PATIENT IS RESTING IN BED- IN STABLE CONDITION WITH NO S/S OF RESPIRATORY DISTRESS. NO PAIN VOICED. IV FLUIDS INFUSING. O2 APPLIED. BED ALARM ON. CALL LIGHT IS WITHIN REACH- PATIENT INSTRUCTED TO CALL FOR ASSISTANCE NEEDED. BEDSIDE REPORT COMPLETED WITH ONCOMING NURSE.
--- NOTE | 2018-11-01 21:02 | Consultation ---
DATE OF CONSULTATION: 11/01/2018 GI Consult Note REASON FOR CONSULTATION: Upper mid epigastric pain for more than 2 weeks. HISTORY OF PRESENTING ILLNESS: A 68-year-old very pleasant white female, who got admitted through the emergency room due to severe upper abdominal pain that was radiating into her back. GI has been consulted for evaluation of the abdominal pain. She has no prior history of peptic ulcer disease. She is not chronically on any NSAIDs. She does not drink alcohol. In the emergency room, she was noted to be hemodynamically stable. Blood work unremarkable. Lipase and amylase level normal. CT scan of the abdomen with oral contrast revealed no acute abdominal pathology. She got admitted for further evaluation and management. She is currently getting IV fluids. She is hungry. She stated that this upper abdominal pain is more into her lower mid chest wall. She also has some associated backache. She does not think that upper abdominal pain is radiating into the back. She has had upper endoscopy couple of years ago for the reason unclear to her. She also has had colonoscopy at the same time. Both procedures were done by some [place] physicians. The patient otherwise denies any associated change in bowel habit, blood in the stool, any dysphagia, odynophagia, early satiation, or weight loss. REVIEW OF SYSTEMS: A 12-point system reviewed. Symptomatology is limited as per HPI. PAST MEDICAL HISTORY: Hyperlipidemia, anxiety, depression, type 2 diabetes, and hypertension. PAST SURGICAL HISTORY: Cholecystectomy and hysterectomy. FAMILY HISTORY: Noncontributory. SOCIAL HISTORY: Chronic smoker. Seldom drinks any alcohol. OUTPATIENT MEDICATIONS: List reviewed as per OCT. INPATIENT MEDICATIONS: Reviewed. PHYSICAL EXAMINATION: VITAL SIGNS: Temperature 98.6 to 100.1, pulse 77, respirations 20, blood pressure 101/60, and oxygen saturation 95% on 3 L of nasal cannula. GENERAL: Obese body habitus, not in any acute distress. HEENT: Oral mucosa is moist. Anicteric sclerae. CVS: S1 and S2 regular. LUNGS: Bilaterally grossly clear. ABDOMEN: No palpable epigastric tenderness. There is reproducible palpable tenderness in the left lower medial chest wall. No right upper quadrant tenderness. Bowel sounds present. Abdominal exam is otherwise benign. EXTREMITIES: Warm. No leg edema. LABORATORY DATA: Electrolytes normal. Amylase and lipase normal. Liver enzymes normal. WBC 16.02, hemoglobin 14.1, hematocrit 43.2, and platelet count 302. Urinalysis negative. CT scan of the abdomen and pelvis with oral contrast revealed no acute abdominopelvic abnormalities. A 5 mm nonobstructing calculus in the upper pole of the left kidney. IMPRESSION: 1. No intraabdominal pathology. 2. Lower right chest wall tenderness is more suggestive of costochondritis. PLAN: Allow oral diet. PPI for GI prophylaxis. Antiinflammatory for costochondritis. The patient has leukocytosis, this needs further evaluation. The patient can be discharged from GI standpoint. We will follow her in office in 2 weeks. I have given her my business card. [employer] MD SA/TAMIE /[id number] MTDD
[2018-11-01] MEDS: CITALOPRAM HYDROBROMIDE 20 MG TAB PO SCH (22:09)
[2018-11-02] VITALS (8 sets, daily range): BP systolic 113–142; BP diastolic 58–72
[2018-11-02] MEDS: SODIUM CHLORIDE 0.9% 1000ML 1,000 ML IV SCH ×2 (01:43→17:56)
[2018-11-02] MEDS: PIPER-TAZ 3.375 GM 50 ML IV SCH ×3 (05:46→21:13)
[2018-11-02 07:09] LABS: BASOPHILS # (AUTO) 0.1 (0.0-0.1); BASOPHILS % 0.5 % (0.0-1.0); EOSINOPHILS # (AUTO) 0.1 (0.0-0.4); EOSINOPHILS % 0.8 % (0.0-6.0); HEMATOCRIT 40.4 % (34.2-44.1); LYMPHOCYTES # (AUTO) 2.7 (1.0-3.2); LYMPHOCYTES % 23.3 % (18.0-39.1); MEAN CORPUSCULAR HEMOGLOBIN 31.4 pg (28-32); MEAN CORPUSCULAR HGB CONC 32.2 g/dL (31-35); MEAN CORPUSCULAR VOLUME 97.6 fL (81-99); MONOCYTES % 8.5 % (4.4-11.3); NEUTROPHILS # (AUTO) 7.8 (2.1-6.9); NEUTROPHILS % 66.6 % (38.7-80.0); PLATELET COUNT 243 x10e3/uL (140-360); RED BLOOD COUNT 4.14 x10e6/uL (3.6-5.1); RED CELL DISTRIBUTION WIDTH 13.1 % (11.7-14.4)
--- NOTE | 2018-11-02 07:10 | NUR ---
PATIENT IN STABLE CONDITION WITH NO S/S OF RESPIRATORY DISTRESS. NO PAIN VOICED. IV FLUIDS INFUSING. O2 APPLIED. BED ALARM ON. CALL LIGHT IS WITHIN REACH- PATIENT INSTRUCTED TO CALL FOR ASSISTANCE NEEDED.
[2018-11-02 07:29] LABS: ALBUMIN 2.8 g/dL (3.5-5.0); ALBUMIN/GLOBULIN RATIO 0.8 (0.8-2.0); ANION GAP 11.1 mmol/L (8-16); CALCIUM 8.9 mg/dL (8.4-10.2); CREATININE, SERUM 1.4 mg/dL (0.57-1.11); POTASSIUM 4.1 mmol/L (3.5-5.1)
[2018-11-02] MEDS: INSULIN LISPRO 100 UNIT/1 ML 3ML VIAL SQ SCH ×7 (07:30→21:30)
[2018-11-02 07:42] LABS: CHOL/HDL RATIO 4.8 (3.0-3.6)
[2018-11-02] MEDS: SALMETEROL/FLUTICASONE 100/50 INH SCH ×2 (07:50→19:35)
[2018-11-02] MEDS: ASPIRIN 81 MG CHEW TAB PO SCH (09:16)
[2018-11-02] MEDS: ACETAMINOPHEN 325 MG TAB PO PRN (09:59)
--- NOTE | 2018-11-02 10:17 | NUR ---
PATIENT REFUSED MRI AND STATED TO YELL AT THE RN TO GET OUT OF THE ROOM. DR. BA CALLED AND VM LEFT TO INFORM HIM THAT THE PATIENT REFUSED THE MRI AND WANTS TO SPEAK WITH HIM. REPORT GIVEN TO OTHER DAY SHIFT NURSE.
[2018-11-02] MEDS: BUDESONIDE/FORMOTEROL 160/4.5MCG INHALER INH SCH (19:35)
--- NOTE | 2018-11-02 19:49 | NUR ---
report given to oncoming nurse, for continued care
[2018-11-02] MEDS: CITALOPRAM HYDROBROMIDE 20 MG TAB PO SCH (21:13)
[2018-11-03] VITALS (9 sets, daily range): BP systolic 111–172; BP diastolic 55–76
[2018-11-03] MEDS: SODIUM CHLORIDE 0.9% 1000ML 1,000 ML IV SCH (05:13)
[2018-11-03] MEDS: PIPER-TAZ 3.375 GM 50 ML IV SCH ×3 (05:13→21:35)
[2018-11-03 06:17] LABS: BASOPHILS # (AUTO) 0.1 (0.0-0.1); BASOPHILS % 0.4 % (0.0-1.0); EOSINOPHILS # (AUTO) 0.1 (0.0-0.4); EOSINOPHILS % 0.7 % (0.0-6.0); HEMATOCRIT 37.8 % (34.2-44.1); HEMOGLOBIN 12.4 g/dL (12.0-16.0); LYMPHOCYTES # (AUTO) 2.3 (1.0-3.2); LYMPHOCYTES % 18.8 % (18.0-39.1); MEAN CORPUSCULAR HEMOGLOBIN 31.9 pg (28-32); MEAN CORPUSCULAR HGB CONC 32.8 g/dL (31-35); MEAN CORPUSCULAR VOLUME 97.2 fL (81-99); MONOCYTES % 7.8 % (4.4-11.3); NEUTROPHILS # (AUTO) 8.9 (2.1-6.9); NEUTROPHILS % 71.9 % (38.7-80.0); PLATELET COUNT 237 x10e3/uL (140-360); RED BLOOD COUNT 3.89 x10e6/uL (3.6-5.1); RED CELL DISTRIBUTION WIDTH 13.2 % (11.7-14.4)
[2018-11-03 06:43] LABS: ALBUMIN 2.7 g/dL (3.5-5.0); ALBUMIN/GLOBULIN RATIO 0.8 (0.8-2.0); ANION GAP 11.1 mmol/L (8-16); CALCIUM 8.7 mg/dL (8.4-10.2); CREATININE, SERUM 1.21 mg/dL (0.57-1.11); POTASSIUM 4.1 mmol/L (3.5-5.1)
[2018-11-03] MEDS: INSULIN LISPRO 100 UNIT/1 ML 3ML VIAL SQ SCH ×7 (07:30→20:38)
--- NOTE | 2018-11-03 07:30 | NUR ---
PT IN BED SLEEPING NO DISTRESS NOTED DENIES PAIN.
[2018-11-03] MEDS: ASPIRIN 81 MG CHEW TAB PO SCH (09:00)
[2018-11-03] MEDS: BUDESONIDE/FORMOTEROL 160/4.5MCG INHALER INH SCH ×2 (11:30→19:10)
[2018-11-03] MEDS: SALMETEROL/FLUTICASONE 100/50 INH SCH ×2 (11:30→19:10)
[2018-11-03] MEDS ORDERED: SODIUM CHLORIDE 0.9% 500ML 500 ML ONE (13:07)
[2018-11-03] MEDS: SUCRALFATE 1 GM TAB PO SCH ×2 (16:30→20:38)
--- NOTE | 2018-11-03 16:47 | NUR ---
CASE MANAGEMENT INITIAL ASSESSMENT [facility] Manager to bedside to discuss plan of care with patient/family. CM/SW role and care transitions discussed. Anticipated discharge plan discussed along with duration of care. CM/SW discussed patients right to make decisions in care. CM/SW work hours given. Patient lives: [place] [facility] AND 1 CHILD; FRIEND IN 1 STORY HOME Admit/Transfer: ER Hospital/ER visits since last admit: NONE POA/Emergency contact: CRUZ FERRO / [place] Current/Previous Home Health: NONE PCP/Follow-up Care: DR. 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 WAS TOLD BY [employer] + SHE HAD MET HER GAP FOR TRULICITY; $200/MO. STATES HER NOVOLOG AND TRESIBA ALSO COST $100/MO EACH. DISCUSSED REQUESTING SAMPLES AT THE [employer] OFFICE AND ASKING THE DOC FOR COUPONS; SPEAKING W HER PHARMACIST ABOUT A PART D PLAN THAT WILL MEET HER MED NEEDS. ENCOURAGED THE PT TO ALSO HAVE THE DOC SPEAK W THE PHARMACY ABOUT GETTING THE MED APPROVED IF IT IS THE ONLY MED THAT WILL CONTROL HER BS. PT VERBALIZED UNDERSTANDING. ASK IF PART D PLAN CAN BE CHANGED. Referral Needs: NONE Education Needs: EDUCATED ON OBTAINING MEDS IMM/EID given and signed (if applicable): EXPLAINED IMM LETTER. PT VERBALIZED UNDERSTANDING. IMM LETTER SIGNED; COPY TO PT AND COPY TO CHART. Goal for discharge: RETURN HOME SAFELY CM/SW left business card at the bedside with contact information. Name and number was also written on the patients whiteboard. Patient verbalized understanding of discussion. CM will follow-up with ongoing discharge and transition of care needs.
--- NOTE | 2018-11-03 16:48 | Diagnostic Imaging Report ---
EXAM: MRI MRCP WO DATE: 11/03/2018 9:33 AM Time stamp on exam: INDICATION: Abdominal pain. COMPARISON: CT dated 10/31/2018 TECHNIQUE: MRCP protocol performed using1.5 Tuyet. Sequences obtained include axial T2 FRFSE FS, coronal and axial T2 SSFSE, SSFSE coronal spins. FINDINGS: Limited study. Patient could not hold breath and there is significant motion artifact. Loss of signal on phase images, suggestive of steatosis. No T2 hyperintense hepatic lesion. Full evaluation is limited without intravenous contrast. Gallbladder is surgically absent. Common bile duct is within normal limits, measuring up to 0.5 cm in diameter without evidence of filling defects. Spleen and pancreas are unremarkable. No pancreatic ductal dilatation or peripancreatic inflammation. No adrenal nodules. No hydronephrosis. Small exophytic left renal superior pole and right midpole cysts. Visualized bowel loops are unremarkable. No evidence of bowel obstruction. No definite evidence of abdominal lymphadenopathy. IMPRESSION: Status post cholecystectomy. No common bile duct dilatation or evidence of choledocholithiasis. Hepatic steatosis. Signed by: Dr. Geoff Bazan MD on 11/03/2018 4:44 PM
[2018-11-03] MEDS ORDERED: LIDOCAINE HCL 2% LOCAL INJ 5 ML SDV VIAL INJ ONE (17:52)
[2018-11-03] MEDS ORDERED: PROPOFOL IV EMULSION 10 MG/ML 20 ML VIAL ONE (17:52)
--- NOTE | 2018-11-03 18:44 | NUR ---
PT UP IN BED DENIES PAIN NO DISTRESS NOTED.
--- NOTE | 2018-11-03 19:00 | NUR ---
patient received awake, alert, lying quietly in bed. no c/o pain noted. ivf continue to infuse without difficulty. pm assessment complete. patient instructed to call for assistance when needed.
[2018-11-03] MEDS: CITALOPRAM HYDROBROMIDE 20 MG TAB PO SCH (20:38)
--- NOTE | 2018-11-03 21:00 | NUR ---
iv to right hand d/c'd due to pain and burning at site. iv #20 gauge placed to right forearm x 1 stick. ivf continue to infuse without difficulty.
[2018-11-04 00:57] VITALS: BP 135/63
[2018-11-04] MEDS: SODIUM CHLORIDE 0.9% 1000ML 1,000 ML IV SCH (03:30)
[2018-11-04 05:06] VITALS: BP 124/62
[2018-11-04] MEDS: PIPER-TAZ 3.375 GM 50 ML IV SCH (05:45)
[2018-11-04] MEDS ORDERED: PANTOPRAZOLE SOD 40 MG TABEC PO SCH (07:30)
--- NOTE | 2018-11-04 07:35 | NUR ---
pt up in bed reting no distress noted,denies pain
[2018-11-04 08:00] VITALS: BP 138/64
[2018-11-04] MEDS: SUCRALFATE 1 GM TAB PO SCH ×2 (09:00→11:30)
[2018-11-04] MEDS: INSULIN LISPRO 100 UNIT/1 ML 3ML VIAL SQ SCH ×4 (09:01→11:30)
[2018-11-04] MEDS: ASPIRIN 81 MG CHEW TAB PO SCH (09:02)
--- NOTE | 2018-11-04 10:30 | NUR ---
dr conner here ok for pt to go home
[2018-11-04] MEDS: BUDESONIDE/FORMOTEROL 160/4.5MCG INHALER INH SCH (11:18)
[2018-11-04] MEDS: SALMETEROL/FLUTICASONE 100/50 INH SCH (11:18)
[2018-11-04 12:00] VITALS: BP 157/70
--- NOTE | 2018-11-04 12:45 | NUR ---
discharge instructions given copy on chaRT,IV DCD WITHOUT REDNESS OR SWELLING.TRANSPORTED TO AUTO VIA W/C
--- NOTE | 2018-11-05 02:13 | Discharge Summary ---
PRIMARY CARE PHYSICIAN: Elen Duran MD. MATERIALS TECHNICIAN: Oj Reynoso MD. FINAL DIAGNOSES: 1. Abdominal pain, status post esophagogastroduodenoscopy, found to have multiple deep gastric ulcers. 2. Elevation of lipase secondary to gastric ulcers. 3. Baseline stable chronic obstructive pulmonary disease, hypertension, and diabetes type 2. 4. Morbidly obese. SUMMARY: A 68-year-old female came in with increasing abdominal pain, more so in the left upper quadrant area and also to the left flank. The patient's lipase was elevated, but CT scan of the abdomen and pelvis did not reveal any significant inflammatory process. The patient has a history of cholecystectomy. She also has a history of hysterectomy. The patient came in and the lipase level was elevated, but less than 1000. The patient subsequently was seen by Dr. Reynoso. She underwent EGD, found to have multiple gastric ulcers. The patient is stable. Lipase normal. LFTs normal. MRCP is stable, nonsignificant. The patient is stable at this time. She has been cleared by Dr. Reynoso for discharge home and I agree. DISCHARGE MEDICATIONS: The patient will go home with Augmentin 875 mg with food twice a day for seven days, Protonix 40 mg twice a day for three months, Carafate suspension 1 g before meals and at bedtime for three months. FOLLOWUP: The patient is to follow up with Dr. Elen Duran as an outpatient. DISCHARGE INSTRUCTIONS: No NSAIDs, no aspirin, no Plavix. No anticoagulation for any reason until the gastric ulcer is healed. The patient is stable, discharged home today. MD Jamie NanceT/MODL /[id number]
== END 2018-11-04 13:00 | disposition home or self-care (01) | DRG 384 ==
LOC: ER 17:53 → ERHOLD 11-01 00:30 → MED/SURG3 11-01 02:45
PROVIDERS: ADMIT Internal Medicine; ATTEND Internal Medicine
PROC: 0DB68ZX Excision of Stomach, Via Natural or Artificial Opening Endoscopic, Diagnostic (ICD-10-PCS; 2018-11-03)
PROC: 0DB58ZX Excision of Esophagus, Via Natural or Artificial Opening Endoscopic, Diagnostic (ICD-10-PCS; principal; 2018-11-03 13:21)
DX: K25.3 Acute gastric ulcer without hemorrhage or perforation (principal); F41.9 Anxiety disorder, unspecified; M94.0 Chondrocostal junction syndrome [Tietze]; K44.9 Diaphragmatic hernia without obstruction or gangrene; K29.80 Duodenitis without bleeding; K21.0 Gastro-esophageal reflux disease with esophagitis; E11.22 Type 2 diabetes mellitus with diabetic chronic kidney disease; I12.9 Hypertensive chronic kidney disease with stage 1 through stage 4 chronic kidney disease, or unspecified chronic kidney disease; N18.3 Chronic kidney disease, stage 3 (moderate); J44.9 Chronic obstructive pulmonary disease, unspecified; G47.33 Obstructive sleep apnea (adult) (pediatric); E66.01 Morbid (severe) obesity due to excess calories; Z68.36 Body mass index [BMI] 36.0-36.9, adult
CPT/HCPCS: 36415; 43239; 74176; 74181; 80053; 80061; 81001; 82150; 82550; 82553; 82948; 83036; 83690; 84484; 85025; 88305; 88312; 93005; 94660; 94664; 99284; J2001; J2405; J2543; J7030; J7040